=== PATIENT | female | born 1995 | race Caucasian/White ===

== ENCOUNTER 2020-05-28 12:38 | Emergency (ER) | payer MEDICAID ==
[~2020-05-28] VITALS: Ht 160 cm; Wt 81.4 kg
[2020-05-28 12:50] VITALS: Ht 160 cm; Wt 81.4 kg
[2020-05-28] MEDS ORDERED: ROBAXIN-750750 MG PO (13:41)
[2020-05-28] MEDS ORDERED: KEF500 PO (13:41)
[2020-05-28] MEDS ORDERED: IBU600 M2 PO (13:41)
[2020-05-28 14:53] VITALS: BP 115/51
== END 2020-05-28 14:53 | disposition home or self-care (01) ==
LOC: ED 12:38
DX: L02.415 Cutaneous abscess of right lower limb (principal); S16.1XXA Strain of muscle, fascia and tendon at neck level, initial encounter; X58.XXXA Exposure to other specified factors, initial encounter; Y93.89 Activity, other specified; Y92.89 Other specified places as the place of occurrence of the external cause; Y99.8 Other external cause status
CPT/HCPCS: J2001